=== PATIENT | male | born 1960 | race Caucasian/White ===

== ENCOUNTER 2020-01-04 18:37 | Emergency (ER) | payer MEDICAID ==
[~2020-01-04] VITALS: Ht 167.6 cm; Wt 75.0 kg
[2020-01-04] MEDS ORDERED: LIDOCAINE HCL 1% 20ML VIAL (Pyxis) INJ INFIL ONE (19:15)
[2020-01-04] MEDS ORDERED: KETOROLAC 60MG/2ML VIAL IM ONE (19:15)
[2020-01-04 20:39] VITALS: BP 148/82
== END 2020-01-04 20:40 | disposition home or self-care (01) ==
LOC: ER 18:37
DX: M70.21 Olecranon bursitis, right elbow (principal); Y93.9 Activity, unspecified; E11.9 Type 2 diabetes mellitus without complications
CPT/HCPCS: 96372; 99283; J1885; J3490

== ENCOUNTER 2020-01-06 06:18 | Emergency (ER) | payer MEDICAID ==
[~2020-01-06] VITALS: Ht 165.1 cm; Wt 63.5 kg
[2020-01-06] MEDS ORDERED: HYDROCODONE/ACETAMINOPHEN 5/325MG TABLET PO ONE (07:45)
[2020-01-06 09:36] VITALS: BP 151/87
== END 2020-01-06 09:40 | disposition home or self-care (01) ==
LOC: ER 06:18
DX: M71.9 Bursopathy, unspecified (principal); E11.9 Type 2 diabetes mellitus without complications
CPT/HCPCS: 10060; 73080; 99284

== ENCOUNTER 2020-01-08 17:56 | Emergency (ER) | payer MEDICAID ==
[~2020-01-08] VITALS: Ht 152.4 cm; Wt 64.0 kg
[2020-01-08 18:48] VITALS: BP 169/91
== END 2020-01-08 19:10 | disposition home or self-care (01) ==
LOC: ER 17:56
DX: M71.521 Other bursitis, not elsewhere classified, right elbow (principal); E11.9 Type 2 diabetes mellitus without complications
CPT/HCPCS: 23931; 99283

== ENCOUNTER 2020-01-12 18:01 | Emergency (ER) | payer MEDICAID ==
[~2020-01-12] VITALS: Ht 170.2 cm; Wt 63.5 kg
[2020-01-12 18:14] VITALS: BP 180/87
== END 2020-01-12 19:03 | disposition home or self-care (01) ==
LOC: ER 18:01
DX: M70.21 Olecranon bursitis, right elbow (principal); Y93.89 Activity, other specified
CPT/HCPCS: 99282